=== PATIENT | male | born 1980 | race Caucasian/White ===

== ENCOUNTER 2017-07-17 10:58 | Emergency (ER) | payer OTHER ==
[~2017-07-17] VITALS: Ht 177.8 cm; Wt 88.0 kg
[2017-07-17 11:04] VITALS: Ht 177.8 cm; Wt 88.0 kg
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
--- NOTE | 2017-07-17 12:31 | RADRPT ---
PROCEDURE: Left knee radiographs. CLINICAL INDICATION: Left knee pain. Trauma. TECHNIQUE: Three views. Weight bearing. Frontal, lateral, and oblique. COMPARISON: No prior studies are available for comparison. FINDINGS: There is no fracture or dislocation. The soft tissues are normal. Articular surfaces are intact. There is no lytic or blastic lesion. There is no radiopaque foreign body. IMPRESSION: 1. Normal images of the left knee. RPTAT: QQ .Ramirez Aguilar MD, MD Date Time Electronically viewed and signed by .Ramirez Aguilar MD, MD on 07/17/2017 12:31 .R/
--- NOTE | 2017-07-17 12:41 | RADRPT ---
PROCEDURE: XR Right Tibia and Fibula. CLINICAL INDICATION: Blunt trauma. Right lower leg pain. TECHNIQUE: Two views. Frontal and lateral. COMPARISON: No prior studies are available for comparison. FINDINGS: There is no fracture or dislocation. The soft tissues are normal. Articular surfaces are intact. There is no lytic or blastic lesion. There is no radiopaque foreign body. IMPRESSION: 1. Normal images of the right tibia and fibula. RPTAT: QQ .Ramirez Aguilar MD, MD Date Time Electronically viewed and signed by .Ramirez Aguilar MD, MD on 07/17/2017 12:41 .R/
--- NOTE | 2017-07-17 12:42 | RADRPT ---
PROCEDURE: XR Right Ankle. CLINICAL INDICATION: Right ankle pain. TECHNIQUE: 3 views. Frontal, lateral, and oblique. COMPARISON: None. FINDINGS: There is no fracture or dislocation. The soft tissues are normal. Articular surfaces are intact. There is no lytic or blastic lesion. There is no radiopaque foreign body. IMPRESSION: 1. Normal images of the right ankle. RPTAT: QQ .Ramirez Aguilar MD, MD Date Time Electronically viewed and signed by .Ramirez Aguilar MD, on 07/17/2017 12:41 .R/
[2017-07-17] MEDS ORDERED: NAPR-260 PO (12:54)
[2017-07-17] MEDS ORDERED: NEOM1PAC TP (12:54)
[2017-07-17] MEDS ORDERED: ACET500C5 PO (12:55)
== END 2017-07-17 13:03 | disposition home or self-care (01) ==
LOC: FTE 10:58
DX: M25.562 Pain in left knee (principal); F17.210 Nicotine dependence, cigarettes, uncomplicated
CPT/HCPCS: 73562; 73590; 73610; Z7502